=== PATIENT | male | born 1985 | race Caucasian/White ===

== ENCOUNTER 2018-05-27 18:40 | Inpatient (IN) | payer BC, OTHER ==
[~2018-05-27] VITALS: Ht 175.3 cm; Wt 86.2 kg
--- NOTE | 2018-05-27 19:35 | NUR ---
Pre-admission Assessment Patient is a 32-year old, male, seen at intake, AAOx4 and with no SOB noted. Patient with clear speech, however he appears anxious, with piloerection, gross tremors, chills, hot flushes and generalized muscle pain=6/10. Patient appears disheveled. Discussed with patient admission policies of the unit. Patient is coherent and able to respond to questions appropriatel. Pt is ambulatory with steady gait. Vital signs taken and as follows: OS=741/74, P=82, O2 sat on RA=97%, RR=20, T=98.3. Pt verbalized instructions and teachings regarding disposal of narcotic and other controlled home meds, unit protocols such as taking of vital signs Q4H and handling and disposal of contraband.
[2018-05-27 20:00] VITALS: BP 134/80
--- NOTE | 2018-05-27 20:20 | NUR ---
Admission Note Pt is a 32 year old male who presents to [facility] for medically supervised withdrawal from Opiates (Fentanyl) and is noted to use intermittently use marijuana. Pt was escorted to the unit at 1948 by a male SHEET ROCK HANGER. He is noted to be ambulatory with no assistance needed. Pt was cooperative with body and skin check with no skin breakdown noted. Pt is noted to be anxious, agitated, flat affect, sweaty and goose bumps. Pt complains of nausea, stomach cramps, joint pain, and chills. He is alert and oriented x 4, speech is clear. Patient reports his substance use as: 1. Opiates (Fentanyl): pt took first dose 6 months ago. He is currently taking 400-500 mcg daily for past 2 months. Last dose at 1300 05/27/18. Pt had left knee surgery 11/2016 and was prescribed [place] which was taken as prescribed and completed. When prescription was completed he obtained Oxycontin and used 4 times. He stated that he thought he was purchasing Oxycontin but it was Fentanyl. He admitted to taking 800-1200 mcg daily for 2 months. He decreased his dose then to the current 400-500 mcg. Pt denies past medical history, except left knee surgery. No PCP noted. Pt denies psychiatric history. No noted 5150 Psych hospitalization. No current Psychiatrist. Pt denies past substance abuse treatment and denies any maintained sobriety since November 2016 s/p knee surgery. Pt denies use of any home medications. Denies tobacco use. Denies seizures, delirium, cardiac complications from withdrawal, and blackouts. Denies intentional overdose, but states, once after snorting 1-2 tablets I woke up on the bathroom floor and I dont know what happened. No medical care received. Patient is noted with one past suicidal ideation due to increased pain from withdrawal, never had plan or attempted. Denies ideation at this time and denies involuntary psychiatric hospitalizations. Pt states he started using when he completed the prescribed [place] S/P surgery. I like the high, it makes me feel happy and didnt think it would end this way. Pt states he wants to get sober because I want to feel better, be able to work and be at home with family. Pt states his triggers are stress from work, home, the physical pain of withdrawal. He denies barriers to getting and or staying sober. He states his family is his support system. Denies consequences from his substance use. Pt states has tried to detox on his own x2 and was unable to because of the withdrawal pain. States that this time is different because he is getting medical help through the withdrawal. Vitals signs rendered and noted as BP 134/80, HR 87, O2 Sat 100% RA, RR 16, T 97.8 and complains of generalized pain of 8/10. Lungs clear, Bowel sounds active, small bowel movement 05/27/18. Follows a regular diet. Reports no known allergies. Full code. Height 59 and weight 190 per standing scale. Pt reports he is interested in receiving treatment because he wants to feel better, be able to work, and to be around his family. Educated pt about plan of care including detox, group therapy, individual therapy, discharge planning and he verbalizes understanding. Admission COWS 18. All information was relayed to MD with new orders for PRN medications for increased signs and symptoms of withdrawal. Labs ordered and rendered. All needs attended promptly. Safety measures in use. Will continue to monitor.
[2018-05-27] MEDS ORDERED: BUPRENORPHINE HCL 2 MG TAB.SUBL SL ONE (20:45)
[2018-05-27] MEDS ORDERED: MAG HYDROX/AL HYDROX/SIMETH 30 ML LIQUID UDC PO PRN (20:45)
[2018-05-27] MEDS ORDERED: MAGNESIUM HYDROXIDE 30 ML LIQUID UDC PO PRN (20:45)
[2018-05-27] MEDS ORDERED: BUPRENORPHINE HCL 2 MG TAB.SUBL SL PRN (20:45)
[2018-05-27] MEDS ORDERED: ACETAMINOPHEN 325 MG TABLET PO PRN (20:45)
[2018-05-27] MEDS ORDERED: LOPERAMIDE HCL 2 MG CAPSULE PO PRN ×2 (20:45)
--- NOTE | 2018-05-27 20:45 | NUR ---
PRN Medication Administration Patient is noted with increased elevated pulse rate, anxiety, agitation, chills and sweats, jo-ann erection of skin, unable to sit still, verbalizing increased body aches, tremors, and increased yawning. COWS noted to be 20. Relayed to CN and MD with one time dose of Subutex 4mg to be administered now. Urine drug screen provided prior to arrival to unit.
[2018-05-27 20:58] LABS: BASOPHILS % (AUTO) 0.3 % (0.0-2.0); ETHANOL < 3 MG/DL (0-0); HEMOGLOBIN 14.4 g/dL (12.5-16.3); LYMPHOCYTES # (AUTO) 1.2 K/uL (20.0-40.0); LYMPHOCYTES % (AUTO) 17.1 % (20.5-51.5); MEAN CORPUSCULAR HEMOGLOBIN 32.2 uug (23.8-33.4); MEAN CORPUSCULAR HGB CONC 35 g/dL (32.5-36.3); MEAN CORPUSCULAR VOLUME 91.7 fL (73.0-96.2); MONOCYTES # (AUTO) 0.5 K/uL (2.0-10.0); MONOCYTES % (AUTO) 6.4 % (0.0-11.0); NEUTROPHILS # (AUTO) 5.4 K/uL (1.8-8.9); NEUTROPHILS % (AUTO) 76.2 % (38.5-71.5); PLATELET COUNT (AUTO) 266 K/uL (152-348); RED BLOOD CELL COUNT(AUTO) 4.47 MIL/uL (4.06-5.63); WHITE BLOOD COUNT (AUTO) 7.1 K/uL (3.6-10.2)
[2018-05-27 21:00] LABS: ALANINE AMINOTRANSFERASE 47 U/L (16-63); ALKALINE PHOSPHATASE 71 U/L (50-136); ASPARTATE AMINOTRANSFERASE 26 U/L (15-37); BILIRUBIN,TOTAL 0.7 mg/dL (0.2-1.0); CARBON DIOXIDE 27 mmol/L (21-32); CHLORIDE 103 mmol/L (98-107); CREATININE 1.1 mg/dL (0.6-1.3); GLUCOSE 179 mg/dL (74-106); POTASSIUM 4.2 mmol/L (3.5-5.1); TOTAL PROTEIN, SERUM 8.5 g/dL (6.4-8.2); UREA NITROGEN, BLOOD 12 mg/dL (7-18)
[2018-05-27 21:18] LABS: *AMPHETAMINE, URINE NEGATIVE (NEGATIVE); *BARBITURATE, URINE NEGATIVE (NEGATIVE); *CANNABINOID, URINE NEGATIVE (NEGATIVE); *COCCAINE, URINE NEGATIVE (NEGATIVE); *OPIATE, URINE POSITIVE (NEGATIVE); *PHENCYCLIDINE SCREEN,URINE NEGATIVE (NEGATIVE)
[2018-05-27] MEDS: ONDANSETRON ODT 4 MG TAB.RAPDIS SL PRN (21:34)
[2018-05-27] MEDS: METHOCARBAMOL 750 MG TABLET PO PRN (21:35)
[2018-05-27] MEDS: DICYCLOMINE HCL 20 MG TABLET PO PRN (21:35)
[2018-05-27] MEDS: LORAZEPAM 1 MG TABLET PO PRN (21:35)
--- NOTE | 2018-05-27 21:40 | NUR ---
PRN Medication Administration/PRN Medication Reassessment Patient is able to verbalize I feel a little bit better. But Im still feeling really anxious Patient is also verbalizing increased nausea and body aches. He is noted pacing in room with lights off. PRN Ativan 2mg, Robaxin, and Zofran administered. One time dose of Subutex 4mg noted to be minimally effective in minimizing signs and symptoms of withdrawal. COWS noted to be 13. Encouraged patient to slowly drink fluids and snack as tolerated. Patient verbalized understanding. Will continue to monitor.
--- NOTE | 2018-05-27 22:40 | NUR ---
PRN Medication Reassessment Patient is noted in bed, watching TV. He is able to verbalize I feel a lot better. I was able to eat the sandwich, snack on chips and drink the sprite. PRN Ativan 2mg, Robaxin, and Zofran noted to be effective. Patient states I feel the symptoms are coming back. Encouraged patient to use distraction and deep breathing exercises. Patient verbalized understanding. Will continue to monitor.
--- NOTE | 2018-05-27 23:10 | NUR ---
PRN Medication Administration Patient is noted pacing his room, facial grimacing, verbalizing increased stomach cramps, anxiety, agitation, body aches, increased chills and sweats, unable to sit still, jo-ann erection of skin. COWS noted to be 20. PRN Subutex 4mg administered as per order. Will continue to monitor.
[2018-05-27] MEDS: HYDROXYZINE PAMOATE 25 MG CAPSULE PO PRN (23:22)
[2018-05-27] MEDS: diphenhydrAMINE 50 MG CAPSULE PO PRN (23:23)
[2018-05-27] MEDS: CLONIDINE HCL 0.1 MG TABLET PO PRN (23:23)
--- NOTE | 2018-05-27 23:25 | NUR ---
PRN Medication Administration Patient is noted verbalizing my anxiety level is so high that I just cannot seem to lay down to rest. Patient is also noted verbalizing increased chills sweats, anxiety, agitation, and inability of falling asleep. PRN Clonidine, Vistaril and Benadryl administered. Will continue to monitor.
[2018-05-28 00:30] VITALS: BP 127/85
--- NOTE | 2018-05-28 00:30 | NUR ---
PRN Medication Reassessment/COWS Patient is noted in bed with his eyes closed. Breathing even and non labored. No restlessness or facial grimacing noted. PRN Subutex 4mg, Clonidine, Vistaril, and Benadryl noted to be effective. COWS not able to be completed as per order. Will continue to monitor.
[2018-05-28 04:30] VITALS: BP 125/79
--- NOTE | 2018-05-28 04:30 | NUR ---
COWS Patient is noted in bed with eyes closed. Breathing even and non labored. No restlessness or discomfort noted. COWS not able to be completed as per order. will continue to monitor.
--- NOTE | 2018-05-28 07:04 | NUR ---
End of Shift Endorsing care of 32 year old male admitted 05/27/18 to [facility] for medically supervised withdrawal from Opiates. 4 day Subutex taper to start at 0900. PRN Subutex given x 2,Ativan, Bentyl, Robaxin, Zofran, Benedryl, and Clonidine. Positive effect. Last COWS 20 @2400. Pt lying in bed with eyes closed and resting. Respirations even and unlabored. Safety measures in use. PO intake 1791, voided x2, no BM, and slept x 5 hours.
--- NOTE | 2018-05-28 07:30 | NUR ---
Start Of Shift Patient is a 32yr old male who was admitted to [facility] on 05/27/18 for a medically supervised withdrawal from Opiates ( Fentanyl and [place]), he will start a 4 day Subutex taper this AM. PRN medications given on PM shift: Ativan, Benadryl, Bentyl, Clonidine, Robaxin, Vistaril, Zofran and Subutex x2. Currently he is asleep in bed, breathing even and unlabored, he slept for 6+ hours and last COWS was 20 at midnight. Continue to follow MD plan of care and offer support as needed.
[2018-05-28] MEDS ORDERED: 4 DAY TAPER BUPRENORPHINE -SERENITY PROTOCOL SL PRN ×2 (09:00→20:45)
[2018-05-28] MEDS ORDERED: TUBERCULIN,PURIF.PROT.DERIV. 5 TU/0.1 ML TEST ID ONE ×2 (09:00)
--- NOTE | 2018-05-28 09:50 | NUR ---
COWS 13 Patient presents with myalgia, stuffy nose, gross tremors, increased anxiety, irritability, restlessness and spasms Robaxin, Bentyl and Ativan PRN given along with scheduled Subutex 4mg SL
--- NOTE | 2018-05-28 09:50 | NUR ---
PRN PRN Robaxin 750mg PO and Bentyl PO given for generalized muscle aches Ativan 2mg PO given for agitation, increased anxiety and tremors Will reassess
[2018-05-28] MEDS: BUPRENORPHINE HCL 2 MG TAB.SUBL SL SCH ×3 (09:52→20:58)
[2018-05-28] MEDS: MULTIVITAMINS,THERAPEUTIC TABLET PO SCH (09:53)
[2018-05-28] MEDS: DICYCLOMINE HCL 20 MG TABLET PO PRN (09:53)
[2018-05-28] MEDS: METHOCARBAMOL 750 MG TABLET PO PRN (09:53)
[2018-05-28] MEDS: LORAZEPAM 1 MG TABLET PO PRN ×2 (09:53→14:29)
--- NOTE | 2018-05-28 10:00 | NUR ---
PPD placed RFA
--- NOTE | 2018-05-28 10:50 | NUR ---
PRN Reassess patient states that muscle aches have decreased, tremors and agitation have significantly decreased, patient resting in bed watching TV, PRN Ativan, Robaxin and Bentyl were effective
[2018-05-28 12:00] VITALS: BP 140/81
--- NOTE | 2018-05-28 12:00 | NUR ---
COWS 15 Patient presents with myalgia, stuffy nose, gross tremors, increased anxiety, irritability,lethargy, restlessness and spasms patient states he is very tired and the previous PRN medications given have helped his withdrawal symptoms
--- NOTE | 2018-05-28 14:29 | NUR ---
PRN Ativan 2mg PO given for increased anxiety
[2018-05-28 16:00] VITALS: BP 141/78
--- NOTE | 2018-05-28 19:30 | NUR ---
START OF SHIFT Pt is a 32 year old male admitted to [facility] for medically supervised withdrawal from Opiates. Pt continues on 4 day Subutex taper started today and is tolerating well. PRN Ativan x2, Bentyl and Robaxin were given today per day shift and were effective. Last COWS 15 @1600. Pt received lying in bed with eyes closed and resting. Respirations are even and unlabored. No s/s of distress noted.Will continue to monitor for safety.
--- NOTE | 2018-05-28 19:33 | NUR ---
End of Shift Endorsing care of 32 year old male admitted 05/27/18 to [facility] for medically supervised withdrawal from Opiates. 4 day Subutex taper was started today. PRN Ativan x2, Bentyl and Robaxin were given today with positive effect. Last COWS 15 @1600. Withdrawal symptoms include Myalgia, lethargy, warm clammy skin, stuffy nose and goose bumps. Pt lying in bed with eyes closed and resting. Respirations even and unlabored. Safety measures in place. PO intake 1750ml , voided x 2, no BM. Continue to follow MD plan of care and offer support and encouragement as needed. Endorsed to shift supervisor film processing.
[2018-05-28 20:00] VITALS: BP 129/79
--- NOTE | 2018-05-28 20:00 | NUR ---
CIWA = 10.
[2018-05-28] MEDS: IBUPROFEN 600 MG TABLET PO PRN (20:58)
--- NOTE | 2018-05-28 20:58 | NUR ---
PRN MOTRIN 600 MG PO GIVEN FOR C/O HEADACHE 01/13.WILL MONITOR FOR EFFECTIVENESS.
--- NOTE | 2018-05-28 22:00 | NUR ---
PRN REASSESSMENT Pt is calm and resting in bed,stated that headache is relieved.Pt is trying to sleep.Will continue to monitor.
[2018-05-29] VITALS: BP 129/79
--- NOTE | 2018-05-29 | NUR ---
COWS DEFERRED DUE TO PT BEING ASLEEP.V/S ARE WNL.BREATHING IS EVEN AND NON LABORED,WILL CONTINUE TO MONITOR.
[2018-05-29 04:00] VITALS: BP 125/73
--- NOTE | 2018-05-29 04:00 | NUR ---
COWS DEFERRED DUE TO PT BEING ASLEEP.V/S ARE WNL.BREATHING IS EVEN AND NON LABORED,WILL CONTINUE TO MONITOR.
--- NOTE | 2018-05-29 06:48 | NUR ---
END OF SHIFT Pt is a 32 year old male admitted to [facility] for medically supervised withdrawal from Opiates. Pt continues on 4 day Subutex taper and is tolerating well. PRN Motrin was given for headache and was effective. Last COWS 10. Pt slept 7 hours,fluid intake was 855 ml,voided x 2.Will continue to monitor for safety.
--- NOTE | 2018-05-29 07:30 | NUR ---
Start of Shift Last COWS 10 at 2100. Pt on 4 day Subutex taper. Pt guarded, flat affect, and depressed mood. Pt withdrawal symptoms include nausea, body aches, chills, fatigue, anhedonia, decreased appetite, dysphoria, warm skin to touch, and nausea. Pt slept 7 hours last night. Encouraged Pt to attend group therapy sessions to identify positive coping skills to maintain sobriety. Bed in lowest position. Side rails up x2. Call light functioning and within reach. All needs attended and met. Will continue to monitor for withdrawal symptoms.
[2018-05-29 08:00] VITALS: BP 122/71
[2018-05-29] MEDS: MULTIVITAMINS,THERAPEUTIC TABLET PO SCH (08:33)
[2018-05-29] MEDS: ONDANSETRON ODT 4 MG TAB.RAPDIS SL PRN (08:33)
[2018-05-29] MEDS: METHOCARBAMOL 750 MG TABLET PO PRN (08:33)
--- NOTE | 2018-05-29 08:35 | NUR ---
PRN ZOFRAN 4 MG SL FOR NAUSEA, NO EMESIS PRN IBUPROFEN 600 MG FOR HEADACHE AND BACK PAIN #6/10 PRN ROBAXIN 750 MG PO FOR MODERATE GENERALIZED BODY ACHES.
--- NOTE | 2018-05-29 08:35 | NUR ---
Reassess Zofran- Pt nausea gone and he was able to eat breakfast. Reassess Robaxin- Pt reports body aches improved. Reassess Ibuprofen- Pt reports headache now #3/10 and tolerable.
--- NOTE | 2018-05-29 08:37 | NUR ---
COWS 14- Pt withdrawal symptoms include nausea, body aches #6/10, chills, sweats, headache #3/10, nausea; no emesis, fatigue, anhedonia, decreased appetite, dysphoria. Administer Subutex per order and protocol nad PRN Rx for comfort as ordered. Addendum: 05/29/18 at 1042 by Enid South RN Pt also has moderate anxiety
[2018-05-29] MEDS ORDERED: BUPRENORPHINE HCL 2 MG TAB.SUBL SL SCH (09:00)
--- NOTE | 2018-05-29 11:32 | NUR ---
Therapist prompted client to attend group therapy.
[2018-05-29 12:00] VITALS: BP 124/76
--- NOTE | 2018-05-29 12:10 | NUR ---
COWS 13- Pt withdrawal symptoms include moderate anxiety, leg restlessness, minimal nausea, mild headache #3/10, body aches, sweats, malaise, anhedonia, and dysphoria. Pt pacing room and unit, room is cluttered with wrappers, empty water bottles, clothes and used linens.
[2018-05-29] MEDS: BUPRENORPHINE HCL 2 MG TAB.SUBL SL SCH ×2 (14:46→20:51)
[2018-05-29] MEDS: HYDROXYZINE PAMOATE 25 MG CAPSULE PO PRN ×2 (14:48→20:52)
--- NOTE | 2018-05-29 14:49 | NUR ---
PRN Vistaril 50 mg PO for c/o moderate anxiety. PT also pacing halls and room.
--- NOTE | 2018-05-29 15:30 | NUR ---
Reassess Padmini- Pt reports anxiety has improved. He is going to group therapy session.
[2018-05-29 16:30] VITALS: BP 138/89
--- NOTE | 2018-05-29 16:30 | NUR ---
COWS 14- Pt c/o moderate anxiety, leg restlessness, minimal nausea, generalized body aches, difficulty concentrating, hypervigilance, sweats, and malaise. Pt affect is flat,anhedonia, dysphoria and depressed mood. Pt continues to pace room, unit and patio.
--- NOTE | 2018-05-29 18:44 | NUR ---
End of Shift Last COWS 14 at 1600. Pt on 4 day Subutex taper. Pt affect is guarded, flat, anhedonia, dysphoria, and depressed mood. Pt withdrawal symptoms include fine tremors, restless legs, pacing around room and unit, nausea, generalized body aches, sweats, moist skin, chills, and malaise. PRN given today; Ibuprofen, Zofran, Vistaril, and Robaxin. Encouraged Pt to attend group therapy sessions to identify positive coping skills to maintain sobriety. Pt attended one group therapy session today. PO Fluids 3300ml, Voids x3, BMx1. Fall and Seizure Precautions. Bed in lowest position. Side rails up x2. Call light functioning and within reach. All needs attended and met. Will continue to monitor for withdrawal symptoms. Endorsed to PM shift.
--- NOTE | 2018-05-29 19:30 | NUR ---
Start of Shift: 32 y/o male admitted for opiate dependency. On subutex tamper for w/d Affect guarded and flat Mood Depressed Cow 4 Ciwa 3 W/D sx anxiety, bone pain, and restlessness. Continue to observe for fall, sz and w/d sx. Siderails up call light within reach.
--- NOTE | 2018-05-29 20:00 | NUR ---
CIWA COW COW 4 anxious and bone pain CIWA 4 tremor anxiety Addendum: 05/30/18 at 0716 by Logan Medeiros LVN Error wrong information COW 10 Ciwa 10 tremor, anxiety, bone pain and tremors
[2018-05-29] MEDS: IBUPROFEN 600 MG TABLET PO PRN (20:52)
--- NOTE | 2018-05-29 22:00 | NUR ---
PRN ibuprofen robaxin and vistaril c/o anxiety and generalize 5-10body pain given ibuprofen robaxin and vistaril effective after 45 mins.
--- NOTE | 2018-05-30 | NUR ---
CIWA/COW Deferred v/s CIWA and COW Eyes closed resp even and unlabored appears resting comfortably
[2018-05-30 01:51] VITALS: BP 121/77
--- NOTE | 2018-05-30 02:59 | NUR ---
COW/CIWA COW 4 restlessness. bone pain and anxiety CIWA 3 anxiety Addendum: 05/30/18 at 0304 by Logan Medeiros LVN Wrong date and time 05/29/2018 2000 hrs
[2018-05-30 04:20] VITALS: BP 121/77
--- NOTE | 2018-05-30 04:21 | NUR ---
Deferred COW CIWA and V/s Lying in bed eyes closed resp even and labored resting comfortably
--- NOTE | 2018-05-30 05:44 | NUR ---
END of Shift Note; Slept 6.25 hrs Cont 5 day subtex tamper c/o anxiety and generalize pain during the shift given ibuprofen, robaxin and vistaril which were effective during the shift continue to observe for safety w/d,fall and sz precautions. siderails up call light within reach.
--- NOTE | 2018-05-30 07:30 | NUR ---
Start Of Shift Patient is a 32yr old male who was admitted to [facility] on 05/27/18 for a medically supervised withdrawal from Opiates ( Fentanyl and [place]), he has been placed on a 4 day Subutex taper and this is day 3. PRN medications given on PM shift: Motrin, Robaxin, Vistaril. Currently he is asleep in bed, breathing even and unlabored, he slept for 6+ hours and last COWS was 4 . Continue to follow MD plan of care and offer support as needed.
[2018-05-30 08:00] VITALS: BP 127/89
[2018-05-30] MEDS: MULTIVITAMINS,THERAPEUTIC TABLET PO SCH (08:38)
[2018-05-30] MEDS: BUPRENORPHINE HCL 2 MG TAB.SUBL SL SCH ×3 (08:38→20:27)
[2018-05-30] MEDS: HYDROXYZINE PAMOATE 25 MG CAPSULE PO PRN ×2 (08:49→19:40)
[2018-05-30] MEDS: CLONIDINE HCL 0.1 MG TABLET PO PRN (08:50)
--- NOTE | 2018-05-30 08:50 | NUR ---
PRN Clonidine 0.1mg Po and Vistaril 50mg PO given per request for increased anxiety will reassess
--- NOTE | 2018-05-30 09:00 | NUR ---
COWS 8 patient's withdrawal symptoms consist of increased anxiety and agitation, diaphoresis and restlessness Vistaril 50mg PO and Clonidine 0.1mg PO given
--- NOTE | 2018-05-30 09:50 | NUR ---
PRN Reassess Patient states medication was effective in reducing his anxiety, clonidine and Vistaril effective
[2018-05-30 12:00] VITALS: BP 128/76
--- NOTE | 2018-05-30 12:00 | NUR ---
COWS 9 Withdrawal symptoms include increased anxiety, restlessness and constipation, Miralax to be given PRN
[2018-05-30 13:06] LABS: HEPATITIS B SURFACE AG Negative (Negative)
[2018-05-30] MEDS: IBUPROFEN 600 MG TABLET PO PRN (15:13)
[2018-05-30] MEDS: METHOCARBAMOL 750 MG TABLET PO PRN (15:13)
--- NOTE | 2018-05-30 15:14 | NUR ---
YARI Motrin 600mg PO and Robaxin 750mg PO given for back pain 01/13 Addendum: 05/30/18 at 1624 by SYED PRUETT RN MOM also given @ 1489
[2018-05-30 16:00] VITALS: BP 129/71
--- NOTE | 2018-05-30 16:00 | NUR ---
COWS 9 Withdrawal symptoms include increased anxiety, restlessness, constipation and back ache PRN Motrin, Robaxin and MOM given
--- NOTE | 2018-05-30 19:20 | NUR ---
End Of Shift Patient is a 32 yr old male who was admitted to [facility] on 05/27/18 for a medically supervised withdrawal from Opiates ( fentanyl and [place]), he has been placed on a 4 day Subutex taper and this was day 3. PRN medications given this shift: Clonidine, Vistaril, Robaxin, Motrin and MOM, he had a fluid intake of 1500ml, 3 voids and 1 bm, his last COWS was 9 @ 1600. His w/d symptoms present as generalized body aches, lethargy and bilateral hand tremors. Continue to follow MD plan of care and offer support and encouragement as needed. Endorsed to aerospace mechanic
--- NOTE | 2018-05-30 19:30 | NUR ---
Start of shift note Received report from day shift nurse. Patient is a 32 year old male admitted for Opiate withdrawal. Patient is on 3rd day of his 4 day Subutex taper. Patient was given PRN Clonidine, Vistaril, Robaxin, Motrin and Milk of Magnesia. Last COWS 9. Patient alert and oriented x 4. Patient presents with flat affect , depressed mood, worried, anxious ,restless and difficulty concentrating. Safety measures in place. Call light in reach. Will continue to monitor
--- NOTE | 2018-05-30 19:40 | NUR ---
PRN Vistaril administration Patient anxious, restless, irritable and agitated. Will monitor for effectiveness
[2018-05-30 20:00] VITALS: BP 132/78
--- NOTE | 2018-05-30 20:00 | NUR ---
COWS assessment Patient anxious, restless, irritable, panic feeling, intermittent perspiration and body aches. COWS 9
--- NOTE | 2018-05-30 20:40 | NUR ---
PRN Vistaril re-assessment Patient states Vistaril helpful. Patient is less anxious.
[2018-05-31] VITALS: BP 129/80
--- NOTE | 2018-05-31 | NUR ---
COWS deferred Patient lying in bed with eyes closed. Respiration even and unlabored. Will continue to monitor
[2018-05-31 04:00] VITALS: BP 122/82
--- NOTE | 2018-05-31 04:00 | NUR ---
COWS deferred Patient lying in bed with eyes closed. Respiration even and unlabored. Will continue to monitor
--- NOTE | 2018-05-31 07:16 | NUR ---
End of shift note Patient slept 6 hours. Fluid intake 1,000 ml. Voided x 2. No BM. Monitored patient throughout shift. Patient presented with flat affect , depressed mood, worried, anxious ,restless and difficulty concentrating, anxious, restless, panic feeling , irritable , body aches and intermittent perspiration. Relaxation technique provided. PRN Vistaril given. Safety measures in place. Call light within reach. Will continue to monitor. Last COWS 9.
--- NOTE | 2018-05-31 07:30 | NUR ---
Start of Shift Fruit Vendor received report on 32 year old male admitted to [facility] on 05/27/18 for medical management of Opiate withdrawals. Pt endorses NKA, full code and regular diet. Pt denies any chronic PMH and denies PPH. Pt currently on a Subutex taper with last COWS 9, per NOC report. Pt was administered Vistaril(anxiety) on NOC, per report. Fruit Vendor encounters pt in pts room with pt resting with eyes closed. Even and unlabored respirations noted. Bed in low position with wheels locked and side rails up x2. Will continue to monitor, support and encourage according to plan of care.
[2018-05-31 08:00] VITALS: BP 119/72
[2018-05-31] MEDS ORDERED: BUPRENORPHINE HCL 2 MG TAB.SUBL SL SCH (09:00)
--- NOTE | 2018-05-31 09:30 | NUR ---
COWS 9 Pt is anxious and restless with fine tremors and complaints of myalgia and nausea. Will continue to monitor, support and encourage according to plan of care
[2018-05-31] MEDS: MULTIVITAMINS,THERAPEUTIC TABLET PO SCH (10:22)
[2018-05-31 12:00] VITALS: BP 130/80
--- NOTE | 2018-05-31 12:00 | NUR ---
COWS 8 Pt with fine tremors, anxiety, restlessness and complaints of chills and sweats. Will continue to monitor, support and encourage according to plan of care.
[2018-05-31] MEDS ORDERED: METH-406 PO (14:58)
[2018-05-31] MEDS ORDERED: CLON0.1T14 PO (14:58)
[2018-05-31] MEDS ORDERED: DIPH50CA37 PO (14:58)
[2018-05-31] MEDS ORDERED: DICY20TA28 PO (14:58)
[2018-05-31] MEDS ORDERED: IBUP-1955 PO (14:58)
[2018-05-31] MEDS ORDERED: HYDR-3895 PO (14:58)
[2018-05-31 16:30] VITALS: BP 132/79
--- NOTE | 2018-05-31 16:30 | NUR ---
COWS 8 Pt is anxious, restless and labile, with complaints of myalgia. Will continue to monitor, support and encourage according to plan of care.
--- NOTE | 2018-05-31 18:58 | NUR ---
End of Shift Audio Visual Specialist provided report on 32 year old male admitted to [facility] on 05/27/18 for medical management of Opiate withdrawals. Pt endorses NKA, full code and regular diet. Pt denies any chronic PMH and denies PPH. Pt has completed a Subutex taper in preparation of tomorrows discharge. Last COWS 8 with no PRN medication administered this shift. Pt is A/O x4 and makes needs known. Clear thought process. Pt is isolative to self, withdrawn and guarded. Irritable and negative about length of taper. Bed in low position with wheels locked and side rails up x2.
[2018-05-31 20:00] VITALS: BP 126/79
--- NOTE | 2018-05-31 20:00 | NUR ---
Start of shift note Received report from day shift nurse. Patient is a 32 year old male admitted for Opiate withdrawal. Patient completed 4 day Subutex taper. Patient is medically cleared to be discharge tomorrow. Patient did not require PRN medication. Last COWS 8. Patient alert and oriented x 4. Patient presents with pressured speech, restricted and guarded. Safety measure in place. Call light within reach. Will continue to monitor.
--- NOTE | 2018-05-31 20:00 | NUR ---
COWS assessment Patient presents with anxiety, restlessness and intermittent perspiration. COWS 6.
[2018-05-31] MEDS: diphenhydrAMINE 50 MG CAPSULE PO PRN (23:09)
--- NOTE | 2018-05-31 23:09 | NUR ---
PRN Benadryl Patient c/o inability to sleep. Administered Benadryl 50 mg PO PRN. Will reassess.
[2018-06-01] VITALS: BP 120/84
--- NOTE | 2018-06-01 | NUR ---
COWS deferred Patient lying in bed with eyes closed. Respiration even and unlabored. Will continue to monitor
[2018-06-01 04:00] VITALS: BP 122/78
--- NOTE | 2018-06-01 04:00 | NUR ---
COWS deferred Patient lying in bed with eyes closed. Respiration even and unlabored. Will continue to monitor
--- NOTE | 2018-06-01 07:18 | NUR ---
End of shift note Patient slept 6 hours. Fluid intake 1,500 ml. Voided x 2. No BM . Patient completed 4 day Subutex taper. Patient is medically cleared to be discharge today. Patient was given PRN Benadryl for difficulty sleeping. Patient alert and oriented x 4. Patient presents with pressured speech, restricted, guarded, anxious and restless. Safety measure in place. Call light within reach. Will continue to monitor. Last COWS 6
--- NOTE | 2018-06-01 07:30 | NUR ---
Start of Shift Behavioral Health Aide received report on 32 year old male admitted to [facility] on 05/27/18 for medical management of Opiate withdrawals. Pt endorses NKA, full code and regular diet. Pt denies any chronic PMH and denies PPH. Pt has completed a 4 day Subutex taper and is scheduled to discharge this morning. Last reported COWS 6, per NOC report. Pt was administered Benadryl(insomnia) on NOC, per report. Behavioral Health Aide encounters pt in pts room with pt resting with eyes closed. Even and unlabored respirations noted. Bed in low position with wheels locked and side rails up x2. Will continue to monitor, support and encourage according to plan of care.
[2018-06-01 08:09] VITALS: BP 133/74
--- NOTE | 2018-06-01 08:30 | NUR ---
COWS 4 Pt is anxious and restless with moist skin. Will continue to monitor, support and encourage according to plan of care.
[2018-06-01] MEDS: MULTIVITAMINS,THERAPEUTIC TABLET PO SCH (09:17)
--- NOTE | 2018-06-01 09:36 | NUR ---
Discharge Assessment Pt is A/O x4 and able to make needs known. Linear thought process with clear speech pattern. Calm and cooperative, pleasant with commercial loan underwriter. Pt denies SI/HI or A/VH. Pt with a flat affect and depressed mood. Pt is anxious about going to his first treatment, but feels more hopeful then anxious. Pt's last COWS 4. VS stable. [employer] educated pt on discharge educational material, discharge medications and contents of discharge packet. Educated on name, route, timing, dose and indication of all prescribed medication. Prescriptions provided for pt. Pt was provided with copies of all signed discharge paperwork, copies of labs, discharge notes and MD orders. All personal belongings returned. No home medication to return. Pt is picked up via private car for transportation to [facility].
== END 2018-06-01 09:36 | disposition other institution (70) | DRG 895 ==
LOC: SRC 19:09
PROVIDERS: ADMIT Family Medicine Addiction Medicine; ATTEND Family Medicine Addiction Medicine
PROC: HZ2ZZZZ Detoxification Services for Substance Abuse Treatment (ICD-10-PCS; principal; 2018-05-27)
PROC: HZ41ZZZ Group Counseling for Substance Abuse Treatment, Behavioral (ICD-10-PCS; 2018-05-29)
PROC: HZ31ZZZ Individual Counseling for Substance Abuse Treatment, Behavioral (ICD-10-PCS; 2018-05-29)
DX: F11.23 Opioid dependence with withdrawal (principal); F12.90 Cannabis use, unspecified, uncomplicated; F41.9 Anxiety disorder, unspecified
CPT/HCPCS: 36415; 70030-TC; 80307; 80361; 83735; 85025; 86592; 86705; 86803; 87340; 87806; G0480; Q0162; Q0163